=== PATIENT | female | born 2000 | race Caucasian/White ===

== ENCOUNTER 2025-09-12 11:43 | Emergency (ER) | payer BC, SELFPAY ==
[2025-09-12 12:15] VITALS: BP 150/98
[2025-09-12 12:53] LABS: Hematocrit 41.2 % (37.0-47.0); Hemoglobin 14.5 g/dL (12.0-16.0); Mean Corp Hgb Conc. 35.2 g/dL (33.0-37.0); Mean Corpuscular Volume 89.4 fL (81.0-99.0); Nucleated Red Blood Cells % 0 %; Platelet Count 264 10^3/uL (130-400); Red Cell Dist. Width 11.3 % (11.5-14.5)
[2025-09-12 13:16] LABS: Troponin I 0.017 ng/ml
[2025-09-12 13:25] LABS: HCG, Serum Qualitative Screen Negative
[2025-09-12 13:55] LABS: ALT (SGPT) 14 U/L (0-35); AST (SGOT) 21 U/L (14-36); Albumin 4.9 g/dl (3.5-5.0); Alkaline Phosphatase 55 U/L (38-126); Blood Urea Nitrogen 10 mg/dl (7-17); Calcium 10.1 mg/dl (8.4-10.2); Carbon Dioxide 24 mmol/L (22-30); Chloride 103 mmol/L (98-107); Glucose 110 mg/dl (70-99); Potassium 4.0 mmol/L (3.5-5.1); Sodium 137 mmol/L (135-145); Total Protein 7.7 g/dl (6.3-8.2); eGFR > 60.00
== END 2025-09-12 15:21 ==
LOC: EMR 11:43
PROVIDERS: Student in an Organized Health Care Education/Training Program
DX: Z53.21 Procedure and treatment not carried out due to patient leaving prior to being seen by health care provider (principal)
CPT/HCPCS: 80053; 84484; 84703; 85025; 93005